=== PATIENT | female | born 1990 | race Two or more races ===

== ENCOUNTER 2025-06-17 22:22 | Emergency (ER) | payer MEDICAID, OTHER ==
[~2025-06-17] VITALS: Ht 154.9 cm; Wt 79.8 kg
[2025-06-17 22:52] VITALS: BP 152/91; PULSE 76; RESP 14; TEMP 99.9; O2SAT 98
== END 2025-06-18 07:23 | disposition left against medical advice (07) ==
LOC: ER 22:22
DX: R21 Rash and other nonspecific skin eruption (principal); Z53.21 Procedure and treatment not carried out due to patient leaving prior to being seen by health care provider